=== PATIENT | female | born 1990 | race Caucasian/White ===

== ENCOUNTER 2022-11-15 16:05 | Emergency (ER) | payer BC, SELFPAY ==
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
[2022-11-15 16:08] VITALS: BP 117/73; PULSE 78; RESP 18; TEMP 36.8; O2SAT 96
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
[2022-11-15 16:17] VITALS: BP 117/73; O2SAT 97
[2022-11-15 16:31] LABS: HCG Qualitative Urine. Negative (Negative)
[2022-11-15 16:31] LABS: Basophils # 0.1 10^3/uL (0.0-0.1); Basophils % 0.4 %; Eosinophils # 0.2 10^3/uL (0.0-0.8); Hematocrit 38.9 % (36-47); Lymphocytes # 2.8 10^3/uL (0.8-4.8); Mean Corpuscular HGB Conc 32.9 g/dL (30-55); Mean Corpuscular Hemoglobin 29.2 pg (27-33); Mean Corpuscular Volume 88.6 fl (85-98); Mean Platelet Volume 10.3 fL (7.4-10.4); Monocytes # 0.8 10^3/uL (0.2-0.9); Monocytes % 4.7 %; Neutrophils # 13.56 10^3/uL (1.8-7.7); Neutrophils % 77.4 %; Nucleated Red Blood Cells % 0 %; Platelet Count 331 10^3/cmm (157-399); Red Blood Count 4.39 10^6/uL (3.85-5.65); White Blood Count 17.52 10^3/uL (3.29-11.43)
[2022-11-15 16:50] LABS: Alanine Aminotransferase 25 U/L (0-33); Albumin Level 4.3 g/dL (3.5-5.2); Alkaline Phosphatase 75 U/L (35-105); Blood Urea Nitrogen 13 mg/dL (6-20); Calcium 8.9 mg/dL (8.5-10.5); Carbon Dioxide 24 mmol/L (22-29); Chloride 105 mmol/L (98-107); Globulin 2.6 g/dL (1.3-4.6); Glomerular Filtration Rate 97.6 mL/min (90-130); Glucose 95 mg/dL (65-115); Osmolality Calculated 290 mOsm/kg (285-295); Sodium 140 mmol/L (136-145); Total Bilirubin 0.3 mg/dL (0.15-1.2); Total Protein 6.9 g/dL (6.6-8.7)
[2022-11-15 16:59] LABS: Anion Gap 15.1 (5-19); Aspartate Amino Transferase 36 U/L (0-32); Potassium 4.1 mmol/L (3.5-5.1)
[2022-11-15 17:15] VITALS: RESP 18
[2022-11-15] MEDS: morphine 4 mg/mL SDV 1 mL IVP (17:15)
[2022-11-15 17:16] LABS: Add Urine Microscopic? YES; Bacteria Urine 2+ /hpf; Bilirubin Urine Neg (Negative); Blood Urine 2+ (Negative); Glucose Urine UA Norm (Normal); Ketones Urine 1+ (Negative); Leukocyte Esterase Urine Negative (Negative); Nitrate Urine Negative (Negative); Protein Urine Neg (Negative); RBC Urine RARE /hpf (0-2); Specific Gravity, Urine 1.005 (1.005-1.030); Squamous Epithelial Cell Urine 0-4 /hpf (0-5); Urine Appearance Clear (CLEAR); Urine Color Yellow (Yellow); Urobilinogen Urine Norm (Negative); pH Urine 7 (5-7)
[2022-11-15 17:17] LABS: Add Urine Culture? Yes
[2022-11-15 17:40] VITALS: RESP 18; O2SAT 98
[2022-11-15] MEDS: iohexol 350 mg/mL 500 mL Btl (per mL) IV (18:58)
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
== END 2022-11-15 17:42 | disposition home or self-care (01) ==
PROVIDERS: Emergency Provider Physician Assistant
DX: S20.219A Contusion of unspecified front wall of thorax, initial encounter (principal); V94 Other and unspecified water transport accidents
CPT/HCPCS: 70450; 71260; 72125; 74177; 80053; 81001; 81025; 85025; 87077; 87086; 87186; 96374; 99285; J2270; Q9967